=== PATIENT | male | born 1990 | race Caucasian/White ===

== ENCOUNTER 2017-02-24 20:59 | Emergency (ER) | payer SELFPAY ==
[~2017-02-24] VITALS: Ht 177.8 cm; Wt 100.0 kg
[~2017-02-24 20:59] MED LIST: AUGMENTIN875 MG OR; HYDROCO/APAP1 T10 OR; LORTAB 1010 MG PO; LORTAB 5-325 MG1 TAB PO; LORTAB5 OR; NO; NO MEDS; PROMETHAZINE HC50 MG PO; ZOFRAN ODT4 MG PO; ZOFRAN4 MG/TAB PO
[2017-02-24] MEDS ORDERED: NAPROSYN500 MG PO (23:34)
[2017-02-24] MEDS ORDERED: ZOFRAN ODT4 MG PO (23:34)
[2017-02-25 01:31] VITALS: BP 128/65
== END 2017-02-25 00:15 | disposition home or self-care (01) | DRG 103 ==
LOC: ED 20:59
DX: R51 Headache (principal); R11.0 Nausea

== ENCOUNTER 2017-06-04 01:19 | Emergency (ER) | payer SELFPAY ==
[~2017-06-04] VITALS: Ht 177.8 cm; Wt 85.0 kg
[~2017-06-04 01:19] MED LIST changes: +NAPROSYN500 MG PO
[2017-06-04] MEDS ORDERED: LORTAB 7.5-3251 TAB PO (03:19)
[2017-06-04 03:55] VITALS: BP 131/64
== END 2017-06-04 04:00 | disposition home or self-care (01) | DRG 563 ==
LOC: ED 01:19
PROC: 0RSJXZZ Reposition Right Shoulder Joint, External Approach (ICD-10-PCS; principal; 2017-06-04)
DX: S43.014A Anterior dislocation of right humerus, initial encounter (principal); F17.210 Nicotine dependence, cigarettes, uncomplicated; X50.1XXA Overexertion from prolonged static or awkward postures, initial encounter; Y93.89 Activity, other specified; Y92.009 Unspecified place in unspecified non-institutional (private) residence as the place of occurrence of the external cause

== ENCOUNTER 2017-06-22 11:48 | Emergency (ER) | payer SELFPAY ==
[~2017-06-22] VITALS: Ht 177.8 cm; Wt 97.7 kg
[~2017-06-22 11:48] MED LIST changes: +LORTAB 7.5-3251 TAB PO
[2017-06-22] MEDS ORDERED: ZOFRAN ODT4 MG PO (13:01)
[2017-06-22] MEDS ORDERED: LORTAB 5-325 MG1 TAB PO (13:01)
[2017-06-22 13:18] VITALS: BP 1110/62
== END 2017-06-22 13:55 | disposition home or self-care (01) | DRG 103 ==
LOC: ED 11:48
DX: R51 Headache (principal); R00.0 Tachycardia, unspecified; R11.2 Nausea with vomiting, unspecified

== ENCOUNTER 2017-09-17 18:58 | Emergency (ER) | payer SELFPAY ==
[~2017-09-17] VITALS: Ht 177.8 cm; Wt 79.5 kg
[2017-09-17 19:35] VITALS: BP 110/63
== END 2017-09-17 19:35 | disposition left against medical advice (07) | DRG 103 ==
LOC: ED 18:58
DX: R51 Headache (principal); Z91.19 Patient's noncompliance with other medical treatment and regimen

== ENCOUNTER 2017-11-27 17:17 | Emergency (ER) | payer SELFPAY ==
[~2017-11-27] VITALS: Ht 177.8 cm; Wt 80.0 kg
[2017-11-27] MEDS ORDERED: FIORICET PO ×2 (18:32→23:27)
[2017-11-27] MEDS ORDERED: ZOFRAN ODT4 MG PO (18:32)
[2017-11-27 19:36] LABS: HEMATOCRIT 49.4 % (39.0-50.0); HEMOGLOBIN 17.4 g/dl (14.0-18.0); IMMATURE GRANULOCYTES 0.6 % (0.0-1.0); MEAN CELL VOLUME 86.2 fL CALC (80.0-100.0); MEAN CORPUSCULAR HGB 30.4 pG CALC (26.0-32.0); MEAN CORPUSCULAR HGB CONC 35.2 g/L CALC (32.0-36.0); NEUT# 18.67 thou/uL (1.82-7.42); RED BLOOD COUNT 5.73 mill/uL (4.70-6.10); RED CELL DISTRI WIDTH 11.9 % (11.5-15.5)
[2017-11-27 19:48] LABS: ALBUMIN 5.2 g/dL (3.2-5.0); ALKALINE PHOSPHATASE 96 u/l (38-126); ANION GAP 22 (6-22 (CALC)); BILIRUBIN, TOTAL 0.7 mg/dL (0.0-1.4); BUN 9 mg/dL (9-20); BUN/CREATININE RATIO 11 (12-20 (CALC)); CALCIUM 10.9 mg/dL (8.4-10.2); CARBON DIOXIDE 22 mmol/l (22-30); CHLORIDE 104 mmol/l (95-108); CREATININE 0.9 mg/dL (0.7-1.3); GFR > 60 ML/MIN (>=60 (CALC)); GFR FOR AFR.AMER. > 60 ML/MIN (>=60 (CALC)); GLUCOSE 132 mg/dL (75-110); SGOT/AST 30 u/l (17-59); SGPT/ALT 59 u/l (21-72); SODIUM 144 mmol/l (137-146); TOTAL PROTEIN 8.2 g/dL (6.3-8.2)
[2017-11-27 22:00] VITALS: BP 110/55
[2017-11-27 22:32] LABS: HEMATOCRIT 45.5 % (39.0-50.0); HEMOGLOBIN 16.2 g/dl (14.0-18.0); IMMATURE GRANULOCYTES 0.6 % (0.0-1.0); MEAN CELL VOLUME 86.5 fL CALC (80.0-100.0); MEAN CORPUSCULAR HGB 30.8 pG CALC (26.0-32.0); MEAN CORPUSCULAR HGB CONC 35.6 g/L CALC (32.0-36.0); NEUT# 18.7 thou/uL (1.82-7.42); RED BLOOD COUNT 5.26 mill/uL (4.70-6.10); RED CELL DISTRI WIDTH 11.8 % (11.5-15.5)
--- NOTE | 2017-11-29 13:00 | NUR ---
Called pt due to preliminary results of 1 of 2 blood cultures growing gram positive cocci. Pt denies fever or body aches. Pt reports he still has headache, however it has not worsened. Advised pt to return if headache does not improve or if he begins having new sx. Pt verbalized understanding. Pt also explained that his WBCs are always high when he has headaches. I stressed the importance of following up with a neurologist. Pt verbalized understanding.
== END 2017-11-28 00:05 | disposition home or self-care (01) | DRG 103 ==
LOC: ED 17:17
PROVIDERS: Emergency Medicine
DX: G44.009 Cluster headache syndrome, unspecified, not intractable (principal); D72.829 Elevated white blood cell count, unspecified; F17.210 Nicotine dependence, cigarettes, uncomplicated

== ENCOUNTER 2018-02-17 20:42 | Emergency (ER) | payer SELFPAY ==
[~2018-02-17] VITALS: Ht 177.8 cm; Wt 79.8 kg
[~2018-02-17 20:42] MED LIST changes: +FIORICET PO
[2018-02-17 22:25] VITALS: BP 128/75
== END 2018-02-17 22:25 | disposition home or self-care (01) | DRG 103 ==
LOC: ED 20:42
DX: R51 Headache (principal); F17.290 Nicotine dependence, other tobacco product, uncomplicated

== ENCOUNTER 2018-06-28 04:02 | Emergency (ER) | payer SELFPAY ==
[~2018-06-28] VITALS: Ht 177.8 cm; Wt 77.2 kg
[2018-06-28 05:30] VITALS: BP 111/67
== END 2018-06-28 05:40 | disposition home or self-care (01) | DRG 103 ==
LOC: ED 04:02
DX: G43.909 Migraine, unspecified, not intractable, without status migrainosus (principal); F17.210 Nicotine dependence, cigarettes, uncomplicated; R11.0 Nausea; H53.149 Visual discomfort, unspecified

== ENCOUNTER 2019-11-23 | Emergency (ER) | payer SELFPAY ==
[2019-11-23] MEDS ORDERED: ZPAK PO (09:40)
== END 2019-11-23 10:14 | disposition home or self-care (01) | DRG 153 ==
DX: J06.9 Acute upper respiratory infection, unspecified (principal); F17.200 Nicotine dependence, unspecified, uncomplicated

== ENCOUNTER 2021-06-21 06:14 | Day surgery (SDC) | payer BC ==
[~2021-06-21] VITALS: Ht 177.8 cm; Wt 87.5 kg
[~2021-06-21 06:14] MED LIST changes: +PANTOPRAZOLE SO40 M1 PO; +SUCRALFATE1 GM PO; +ZPAK PO
[2021-06-21] MEDS ORDERED: PERCOCET 5/325M1 TAB PO (09:08)
[2021-06-21 10:37] VITALS: BP 128/55
--- NOTE | 2021-06-22 12:43 | NUR ---
PATIENT CALLED STATES HE IS IN SEVERE PAIN, PAIN MEDICATION NOT HELPING, ALLEVIATES PAIN X 1 HOUR ONLY, DENIED NAUSEA, DENIED OTHER SYMPTOMS. ADVISED PATIENT TO GO TO NEAREST EMERGENCY ROOM FOR EVALUATION DUE TO PAIN SYMPTOMS. PATIENT AGREED AND STATED HE WOULD GO TO E.R.
== END 2021-06-21 10:05 | disposition home or self-care (01) | DRG 419 ==
LOC: ORM 06:14
PROVIDERS: ATTEND Surgery
PROC: 0FT44ZZ Resection of Gallbladder, Percutaneous Endoscopic Approach (ICD-10-PCS; principal; 2021-06-21)
DX: K80.00 Calculus of gallbladder with acute cholecystitis without obstruction (principal); F17.210 Nicotine dependence, cigarettes, uncomplicated
CPT/HCPCS: J0131; J1610; J2710; Q9967

== ENCOUNTER 2021-06-22 13:25 | Emergency (ER) | payer BC ==
[~2021-06-22] VITALS: Ht 177.8 cm; Wt 89.0 kg
[~2021-06-22 13:25] MED LIST changes: +PERCOCET 5/325M1 TAB PO
[2021-06-22 14:39] LABS: HEMATOCRIT 46.8 % (39.0-50.0); IMMATURE GRANULOCYTES 0.2 % (0.0-5.0); MEAN CELL VOLUME 89.1 fL CALC (80.0-100.0); MEAN CORPUSCULAR HGB 30.5 pG CALC (26.0-32.0); MEAN CORPUSCULAR HGB CONC 34.2 g/dL CAL (32.0-36.0); NEUT# 6.48 thou/uL (1.82-7.42); RED BLOOD COUNT 5.25 mill/uL (4.70-6.10); RED CELL DISTRI WIDTH 11.7 % (11.5-15.5)
[2021-06-22 14:58] LABS: ALBUMIN 4.3 g/dL (3.2-5.0); ALKALINE PHOSPHATASE 54 u/l (38-126); ANION GAP 16 (6-22 (CALC)); BILIRUBIN, TOTAL 0.7 mg/dL (0.0-1.4); BUN 6 mg/dL (9-20); BUN/CREATININE RATIO 7 (12-20 (CALC)); CARBON DIOXIDE 22 mmol/l (22-30); CHLORIDE 103 mmol/l (95-108); CREATININE 0.9 mg/dL (0.7-1.3); GFR > 60 ML/MIN (>=60 (CALC)); GFR FOR AFR.AMER. > 60 ML/MIN (>=60 (CALC)); LIPASE 53 u/l (23-300); POTASSIUM 3.8 mmol/l (3.5-5.1); SGOT/AST 37 u/l (17-59); SODIUM 138 mmol/l (137-146); TOTAL PROTEIN 7.7 g/dL (6.3-8.2)
[2021-06-22 17:42] VITALS: BP 147/55
== END 2021-06-22 17:44 | disposition home or self-care (01) | DRG 948 ==
LOC: ED 13:25
PROVIDERS: Family Medicine
DX: G89.18 Other acute postprocedural pain (principal); F17.210 Nicotine dependence, cigarettes, uncomplicated; Z90.49 Acquired absence of other specified parts of digestive tract
CPT/HCPCS: Q9967

== ENCOUNTER 2021-10-10 21:53 | Emergency (ER) | payer SELFPAY ==
[~2021-10-10] VITALS: Ht 172.7 cm; Wt 82.0 kg
[2021-10-11] MEDS ORDERED: ULTRAM50 MG PO (00:46)
[2021-10-11] MEDS ORDERED: ZOFRAN4 MG/TAB PO (00:46)
[2021-10-11 00:55] VITALS: BP 110/60
== END 2021-10-11 00:57 | disposition home or self-care (01) | DRG 103 ==
LOC: ED 21:53
DX: G43.909 Migraine, unspecified, not intractable, without status migrainosus (principal); F17.200 Nicotine dependence, unspecified, uncomplicated

== ENCOUNTER 2022-01-11 23:03 | Emergency (ER) | payer SELFPAY ==
[~2022-01-11] VITALS: Ht 172.7 cm; Wt 86.0 kg
[~2022-01-11 23:03] MED LIST changes: +ULTRAM50 MG PO
[2022-01-11 23:14] VITALS: BP 113/73
[2022-01-11 23:30] VITALS: BP 121/89
[2022-01-12] VITALS: BP 114/72
[2022-01-12] MEDS ORDERED: FIORICET PO (00:22)
[2022-01-12] MEDS ORDERED: ONDANSETRON4 MG PO (00:22)
[2022-01-12 00:31] VITALS: BP 94/53
== END 2022-01-12 00:37 | disposition home or self-care (01) | DRG 103 ==
LOC: ED 23:03
DX: G43.909 Migraine, unspecified, not intractable, without status migrainosus (principal); F17.200 Nicotine dependence, unspecified, uncomplicated

== ENCOUNTER 2022-03-19 03:17 | Emergency (ER) | payer SELFPAY ==
[~2022-03-19] VITALS: Ht 172.7 cm; Wt 77.0 kg
[~2022-03-19 03:17] MED LIST changes: +ONDANSETRON4 MG PO
[2022-03-19 03:22] VITALS: BP 135/95
[2022-03-19] MEDS ORDERED: IMITREX100 M1 PO (04:19)
[2022-03-19 04:34] VITALS: BP 121/70
[2022-03-19 04:38] VITALS: BP 121/70
== END 2022-03-19 04:59 | disposition home or self-care (01) | DRG 103 ==
LOC: ED 03:17
DX: G43.909 Migraine, unspecified, not intractable, without status migrainosus (principal); F17.200 Nicotine dependence, unspecified, uncomplicated

== ENCOUNTER 2022-06-06 12:49 | Emergency (ER) | payer SELFPAY ==
[~2022-06-06] VITALS: Ht 172.7 cm; Wt 90.9 kg
[~2022-06-06 12:49] MED LIST changes: +IMITREX100 M1 PO
[2022-06-06] MEDS ORDERED: IBUPROFEN 200200 MG PO (13:16)
[2022-06-06 13:41] LABS: HEMATOCRIT 47.9 % (39.0-50.0); HEMOGLOBIN 17.1 g/dl (14.0-18.0); IMMATURE GRANULOCYTES 0.1 % (0.0-5.0); MEAN CELL VOLUME 86.3 fL CALC (80.0-100.0); MEAN CORPUSCULAR HGB 30.8 pG CALC (26.0-32.0); MEAN CORPUSCULAR HGB CONC 35.7 g/dL CAL (32.0-36.0); NEUT# 5.33 thou/uL (1.82-7.42); RED BLOOD COUNT 5.55 mill/uL (4.70-6.10); RED CELL DISTRI WIDTH 11.6 % (11.5-15.5)
[2022-06-06 14:06] LABS: ALBUMIN 4.3 g/dL (3.2-5.0); ALKALINE PHOSPHATASE 66 u/l (38-126); ANION GAP 14 (6-22 (CALC)); BUN 7 mg/dL (9-20); BUN/CREATININE RATIO 8 (12-20 (CALC)); CARBON DIOXIDE 22 mmol/l (22-30); CHLORIDE 106 mmol/l (95-108); GFR FOR AFR.AMER. > 60 ML/MIN (>=60 (CALC)); GFR OTHER RACES > 60 ML/MIN (>=60 (CALC)); POTASSIUM 3.8 mmol/l (3.5-5.1); SGOT/AST 27 u/l (17-59); SODIUM 137 mmol/l (137-146); TOTAL PROTEIN 7.3 g/dL (6.3-8.2)
[2022-06-06 14:15] VITALS: BP 121/73
[2022-06-06] MEDS ORDERED: FIORICET PO (14:18)
== END 2022-06-06 14:34 | disposition left against medical advice (07) | DRG 103 ==
LOC: ED 12:49
PROVIDERS: Emergency Medicine
DX: G43.909 Migraine, unspecified, not intractable, without status migrainosus (principal); F17.210 Nicotine dependence, cigarettes, uncomplicated; Z91.19 Patient's noncompliance with other medical treatment and regimen

== ENCOUNTER 2022-06-13 22:20 | Emergency (ER) | payer SELFPAY ==
[~2022-06-13 22:20] MED LIST changes: +IBUPROFEN 200200 MG PO
== END 2022-06-13 23:59 | disposition home or self-care (01) | DRG 951 ==
LOC: ED 22:20 → LWOBS 23:23 → ED 23:59
DX: Z53.21 Procedure and treatment not carried out due to patient leaving prior to being seen by health care provider (principal)

== ENCOUNTER 2022-09-17 09:14 | Emergency (ER) | payer SELFPAY ==
[2022-09-17] VITALS (8 sets, daily range): BP systolic 104–121; BP diastolic 61–81
[~2022-09-17] VITALS: Ht 172.7 cm; Wt 78.7 kg
== END 2022-09-17 13:39 | disposition home or self-care (01) | DRG 103 ==
LOC: ED 09:14
DX: G44.029 Chronic cluster headache, not intractable (principal)

== ENCOUNTER 2022-10-10 20:13 | Emergency (ER) | payer SELFPAY ==
[~2022-10-10] VITALS: Ht 172.7 cm; Wt 97.0 kg
[2022-10-10 21:06] VITALS: BP 111/71
[2022-10-10 21:31] VITALS: BP 88/53
[2022-10-10 21:44] VITALS: BP 115/76
[2022-10-10 22:00] VITALS: BP 123/65
[2022-10-10] MEDS ORDERED: IMITREX100 M1 PO (22:19)
[2022-10-10 22:30] VITALS: BP 105/61
[2022-10-10 22:37] VITALS: BP 105/61
== END 2022-10-10 22:50 | disposition home or self-care (01) | DRG 103 ==
LOC: ED 20:13
DX: G43.909 Migraine, unspecified, not intractable, without status migrainosus (principal); F17.200 Nicotine dependence, unspecified, uncomplicated

== ENCOUNTER 2023-05-05 19:52 | Emergency (ER) | payer SELFPAY ==
[~2023-05-05] VITALS: Ht 172.7 cm; Wt 81.0 kg
[2023-05-05] MEDS ORDERED: FIORICET PO (21:20)
[2023-05-05 23:25] VITALS: BP 122/60
== END 2023-05-05 23:25 | disposition home or self-care (01) | DRG 103 ==
LOC: ED 19:52
DX: G43.909 Migraine, unspecified, not intractable, without status migrainosus (principal); F17.200 Nicotine dependence, unspecified, uncomplicated

== ENCOUNTER 2024-01-20 11:42 | Emergency (ER) | payer OTHER ==
[~2024-01-20] VITALS: Ht 172.7 cm; Wt 86.0 kg
[~2024-01-20 11:42] MED LIST changes: +MEDDOSEPAK PO; +METHOCARBAMOL500 MG PO; +NAPROXEN500 MG PO
[2024-01-20 15:02] VITALS: BP 123/71
[2024-01-20 15:15] VITALS: BP 118/73
[2024-01-20] MEDS ORDERED: KETOROLAC TROMETHAMINE 30 MG/ML SDV IM ONE (15:25)
[2024-01-20] MEDS ORDERED: traMADol HCL 50 MG/TAB PO ONE (15:25)
[2024-01-20] MEDS ORDERED: LORTAB 5/3255 MG PO (15:35)
[2024-01-20 15:52] VITALS: BP 118/73
== END 2024-01-20 15:59 | disposition home or self-care (01) | DRG 563 ==
LOC: ED 11:42
DX: S63.91XA Sprain of unspecified part of right wrist and hand, initial encounter (principal); F17.210 Nicotine dependence, cigarettes, uncomplicated; W31.9XXA Contact with unspecified machinery, initial encounter; Y93.89 Activity, other specified; Y99.0 Civilian activity done for income or pay

== ENCOUNTER 2024-05-26 01:01 | Emergency (ER) | payer SELFPAY ==
[~2024-05-26] VITALS: Ht 177.8 cm; Wt 86.0 kg
[2024-05-26] VITALS (8 sets, daily range): BP systolic 88–107; BP diastolic 48–77
[~2024-05-26 01:01] MED LIST changes: +LORTAB 5/3255 MG PO; +REGLAN10 MG PO
[2024-05-26] MEDS ORDERED: KETOROLAC TROMETHAMINE 30 MG/ML SDV IV ONE (01:15)
[2024-05-26] MEDS ORDERED: DiphenhydrAMINE HCL 50 MG/ML SDV IV ONE (01:15)
[2024-05-26] MEDS ORDERED: DEXAMETHASONE SOD. PHOSPHATE 10 MG/ML VIAL IV ONE (01:15)
[2024-05-26] MEDS ORDERED: METOCLOPRAMIDE HCL 10 MG/2 ML SDV IV ONE (01:15)
[2024-05-26] MEDS ORDERED: DEXTROSE 5% / 0.9% NACL 1,000 ML IV SCH (01:15)
[2024-05-26] MEDS ORDERED: DEXTROSE 5% / 0.9% NACL 1,000 ML IV ONE (01:20)
[2024-05-26] MEDS ORDERED: HALOPERIDOL LACTATE 5 MG/ML SDV IM ONE (01:30)
== END 2024-05-26 02:50 | disposition home or self-care (01) | DRG 392 ==
LOC: ED 01:01
DX: R11.2 Nausea with vomiting, unspecified (principal); F12.10 Cannabis abuse, uncomplicated; G43.909 Migraine, unspecified, not intractable, without status migrainosus; F17.210 Nicotine dependence, cigarettes, uncomplicated; T45.0X6A Underdosing of antiallergic and antiemetic drugs, initial encounter; Z91.128 Patient's intentional underdosing of medication regimen for other reason

== ENCOUNTER 2024-11-23 16:44 | Emergency (ER) | payer SELFPAY ==
[~2024-11-23] VITALS: Ht 177.8 cm; Wt 81.6 kg
[2024-11-23 17:38] VITALS: BP 105/69
[2024-11-23] MEDS ORDERED: METOCLOPRAMIDE HCL 10 MG/2 ML SDV IV ONE (17:40)
[2024-11-23] MEDS ORDERED: ACETAMINOPHEN 500 MG TAB PO ONE (17:40)
[2024-11-23] MEDS ORDERED: DiphenhydrAMINE HCL 50 MG/ML SDV IV ONE (17:40)
[2024-11-23] MEDS ORDERED: KETOROLAC TROMETHAMINE 30 MG/ML SDV IV ONE (17:40)
[2024-11-23] MEDS ORDERED: MAGNESIUM SULFATE HEPTAHYDRATE 50 ML IV ONE (17:40)
[2024-11-23] MEDS ORDERED: SODIUM CHLORIDE 0.9% 1,000 ML IV ONE (17:40)
[2024-11-23 17:52] LABS: BASO% 0.2 % (0-3); EOS% 0.7 % (0-8); HEMOGLOBIN 16.5 g/dl (14.0-18.0); IMMATURE GRANULOCYTES 0.2 % (0.0-5.0); LYMPH% 18.4 % (15-41); MEAN CELL VOLUME 88.3 fL CALC (80.0-100.0); MEAN CORPUSCULAR HGB CONC 35.1 g/dL CAL (32.0-36.0); MONO% 6.6 % (2-13); NEUT# 10.52 thou/uL (1.82-7.42); NEUT% 73.9 % (42-76); RED BLOOD COUNT 5.32 mill/uL (4.70-6.10); RED CELL DISTRI WIDTH 11.6 % (11.5-15.5)
[2024-11-23 18:08] LABS: ALBUMIN 4.4 g/dL (3.2-5.0); BILIRUBIN, TOTAL 0.5 mg/dL (0.2-1.3); CREATININE 0.9 mg/dL (0.7-1.3); POTASSIUM 4.2 mmol/l (3.5-5.1); TOTAL PROTEIN 7.1 g/dL (6.3-8.2)
[2024-11-23] MEDS ORDERED: MORPHINE SULFATE 4 MG/ML VIAL IV ONE (18:15)
[2024-11-23] MEDS ORDERED: DEXAMETHASONE SOD. PHOSPHATE 10 MG/ML VIAL IV ONE (18:15)
[2024-11-23 18:59] VITALS: BP 95/71
[2024-11-23 19:00] VITALS: BP 110/68
[2024-11-23 20:27] VITALS: BP 110/71
== END 2024-11-23 20:27 | disposition home or self-care (01) | DRG 103 ==
LOC: ED 16:44
PROVIDERS: Family Medicine
DX: G43.909 Migraine, unspecified, not intractable, without status migrainosus (principal)
CPT/HCPCS: J1100; J1200; J2765; J3475